=== PATIENT | male | born 1960 | race Two or more races ===

== ENCOUNTER 2018-02-03 14:56 | Inpatient (IN) | payer OTHER ==
[~2018-02-03] VITALS: Ht 170.2 cm; Wt 109.0 kg
[2018-02-03] MEDS ORDERED: SODIUM CHLORIDE 0.9% 1,000ML IVBOLUS ONE (16:00)
[2018-02-03] MEDS ORDERED: ACETAMINOPHEN 500 MG TABLET ONE (16:11)
[2018-02-03 16:16] LABS: BASOPHILS # (AUTO) 0.05 x10^3/uL (0-0.1); BASOPHILS % (AUTO) 0 % (0-1); EOSINOPHILS # (AUTO) 0.18 x10^3/uL (0-0.4); EOSINOPHILS % (AUTO) 1 % (1-7); LYMPHOCYTES # (AUTO) 1.39 x10^3/uL (1-3.4); LYMPHOCYTES % (AUTO) 9 % (22-44); MD NO; MEAN CORPUSCULAR HGB CONC 35.4 g/dL (33.2-36.2); MEAN CORPUSCULAR VOLUME 84.8 fL (81-97); MEAN PLATELET VOLUME 7.2 fL (7.4-10.4); MONOCYTES # (AUTO) 1.15 x10^3/uL (0.2-0.8); MONOCYTES % (AUTO) 7 % (2-9); NEUTROPHILS # (AUTO) 13.01 x10^3/uL (1.8-6.8); NEUTROPHILS % (AUTO) 82 % (42-75); PLATELET COUNT 366 x10^3/uL (130-400); RED BLOOD COUNT 5.22 x10^6/uL (4.38-5.82); RED CELL DISTRIBUTION WIDTH 13.6 % (9.4-14.8)
[2018-02-03 16:23] LABS: ALANINE AMINOTRANSFERASE 57 U/L (12-78); ALBUMIN 3.8 g/dL (3.4-5.0); ANION GAP 7 mmol/L (5-15); CALCIUM 8.4 mg/dL (8.5-10.1); CHLORIDE 103 mmol/L (98-107)
[2018-02-03] MEDS ORDERED: THYR300T PO (16:24)
[2018-02-03] MEDS ORDERED: FLUO90CA5 PO (16:24)
[2018-02-03] MEDS ORDERED: METO200T2 PO (16:24)
[2018-02-03] MEDS ORDERED: CARI350T14 PO (16:24)
[2018-02-03] MEDS ORDERED: METO50TA4 PO (16:26)
[2018-02-03] MEDS ORDERED: FLUO40CA2 PO (16:26)
[2018-02-03 16:33] LABS: ALKALINE PHOSPHATASE 89 U/L (45-117); BILIRUBIN,TOTAL 0.5 mg/dL (0.2-1.0); CREATININE 1.05 mg/dL (0.7-1.3); TOTAL PROTEIN 7.7 g/dL (6.4-8.2)
[2018-02-03 16:52] LABS: MICROSCOPIC AUTO
[2018-02-03 16:55] LABS: THYROID STIMULATING HORMONE < 0.005 mIU/L (0.358-3.740)
[2018-02-03 16:58] LABS: CULTURE INDICATED? NO
[2018-02-03] MEDS ORDERED: ACETAMINOPHEN 500 MG TABLET PO ONE (17:30)
[2018-02-03] MEDS ORDERED: OMNIPAQUE 350 MG/ML, 100ML BOTTLE ONE (17:51)
[2018-02-03] MEDS ORDERED: METRONIDAZOLE PMX 500MG/100ML 100 ML IV ONE (18:30)
[2018-02-03] MEDS ORDERED: CEFTRIAXONE PMX 1GM/50ML 50 ML IV ONE (18:30)
[2018-02-03] MEDS ORDERED: CEFTRIAXONE PMX 1GM/50ML 50 ML ONE (18:35)
[2018-02-03] MEDS ORDERED: METRONIDAZOLE PMX 500MG/100ML 100 ML ONE (18:35)
[2018-02-03] MEDS ORDERED: MORPHINE SULFATE 4 MG/ML, 1ML ONE (18:36)
[2018-02-03] MEDS ORDERED: MORPHINE SULFATE 4 MG/ML, 1ML IVPush PRN (19:00)
[2018-02-03] MEDS ORDERED: ONDANSETRON 2MG/ML, 2ML IVPush PRN (19:30)
[2018-02-03] MEDS: D5%-0.45% NACL 1,000 ML IV SCH (20:47)
[2018-02-03 21:17] VITALS: BP 162/92
[2018-02-03] MEDS: PIPERACILLIN/TAZO/PMX 3.375GM 50 ML IV SCH (21:23)
[2018-02-03] MEDS: FLUOXETINE HCL 20 MG CAPSULE PO SCH (21:23)
[2018-02-03] MEDS: morphine SULFATE 10 MG/ML, 1ML IVPush PRN (21:24)
[2018-02-03] MEDS: THYROID 30 MG TABLET PO SCH (21:24)
[2018-02-03] MEDS: ACETAMINOPHEN 325 MG TABLET PO PRN (23:16)
[2018-02-04] MEDS: morphine SULFATE 10 MG/ML, 1ML IVPush PRN ×7 (00:27→22:18)
[2018-02-04 01:51] VITALS: BP 132/79
[2018-02-04] MEDS: PIPERACILLIN/TAZO/PMX 3.375GM 50 ML IV SCH ×4 (03:24→21:19)
[2018-02-04] MEDS: ACETAMINOPHEN 325 MG TABLET PO PRN ×5 (03:28→22:18)
[2018-02-04 05:32] LABS: BASOPHILS # (AUTO) 0.01 x10^3/uL (0-0.1); BASOPHILS % (AUTO) 0 % (0-1); EOSINOPHILS # (AUTO) 0.01 x10^3/uL (0-0.4); EOSINOPHILS % (AUTO) 0 % (1-7); LYMPHOCYTES # (AUTO) 0.84 x10^3/uL (1-3.4); LYMPHOCYTES % (AUTO) 7 % (22-44); MD NO; MEAN CORPUSCULAR HEMOGLOBIN 30.1 pg (27.5-34.5); MEAN CORPUSCULAR HGB CONC 35.4 g/dL (33.2-36.2); MEAN CORPUSCULAR VOLUME 84.9 fL (81-97); MEAN PLATELET VOLUME 7.1 fL (7.4-10.4); MONOCYTES # (AUTO) 1.16 x10^3/uL (0.2-0.8); MONOCYTES % (AUTO) 10 % (2-9); NEUTROPHILS # (AUTO) 10.19 x10^3/uL (1.8-6.8); NEUTROPHILS % (AUTO) 83 % (42-75); PLATELET COUNT 300 x10^3/uL (130-400); RED BLOOD COUNT 4.73 x10^6/uL (4.38-5.82); RED CELL DISTRIBUTION WIDTH 13.9 % (9.4-14.8)
[2018-02-04 05:42] LABS: CHLORIDE 101 mmol/L (98-107)
[2018-02-04 05:56] LABS: ALANINE AMINOTRANSFERASE 45 U/L (12-78); ALBUMIN 3.4 g/dL (3.4-5.0); ALKALINE PHOSPHATASE 67 U/L (45-117); ANION GAP 9 mmol/L (5-15); BILIRUBIN,TOTAL 1.2 mg/dL (0.2-1.0); CALCIUM 8.4 mg/dL (8.5-10.1); CREATININE 1.16 mg/dL (0.7-1.3); TOTAL PROTEIN 6.9 g/dL (6.4-8.2)
[2018-02-04] MEDS: D5%-0.45% NACL 1,000 ML IV SCH ×2 (06:05→19:39)
[2018-02-04] MEDS ORDERED: MAGNESIUM SULFATE PMX 4GM/100M 100 ML IV ONE (07:00)
[2018-02-04 07:31] VITALS: BP 135/87
[2018-02-04] MEDS: ENOXAPARIN 40 MG/0.4 ML SQ SCH (07:57)
[2018-02-04 13:09] VITALS: BP 138/75
[2018-02-04 16:46] VITALS: BP 155/80
[2018-02-04 18:29] VITALS: BP 145/80
[2018-02-04] MEDS: THYROID 30 MG TABLET PO SCH (21:00)
[2018-02-04] MEDS: FLUOXETINE HCL 20 MG CAPSULE PO SCH (21:19)
[2018-02-05 00:13] VITALS: BP 136/69
[2018-02-05] MEDS: morphine SULFATE 10 MG/ML, 1ML IVPush PRN ×6 (01:35→19:32)
[2018-02-05] MEDS: PIPERACILLIN/TAZO/PMX 3.375GM 50 ML IV SCH ×4 (03:35→21:23)
[2018-02-05] MEDS: D5%-0.45% NACL 1,000 ML IV SCH ×3 (03:35→21:23)
[2018-02-05] MEDS: ACETAMINOPHEN 325 MG TABLET PO PRN (04:52)
[2018-02-05 05:09] LABS: BASOPHILS # (AUTO) 0.03 x10^3/uL (0-0.1); BASOPHILS % (AUTO) 0 % (0-1); EOSINOPHILS # (AUTO) 0.01 x10^3/uL (0-0.4); EOSINOPHILS % (AUTO) 0 % (1-7); LYMPHOCYTES # (AUTO) 0.96 x10^3/uL (1-3.4); LYMPHOCYTES % (AUTO) 16 % (22-44); MD NO; MEAN CORPUSCULAR HEMOGLOBIN 29.8 pg (27.5-34.5); MEAN CORPUSCULAR HGB CONC 34.9 g/dL (33.2-36.2); MEAN CORPUSCULAR VOLUME 85.5 fL (81-97); MONOCYTES # (AUTO) 0.81 x10^3/uL (0.2-0.8); MONOCYTES % (AUTO) 14 % (2-9); NEUTROPHILS # (AUTO) 4.13 x10^3/uL (1.8-6.8); NEUTROPHILS % (AUTO) 70 % (42-75); PLATELET COUNT 241 x10^3/uL (130-400); RED BLOOD COUNT 4.87 x10^6/uL (4.38-5.82); RED CELL DISTRIBUTION WIDTH 13.8 % (9.4-14.8)
[2018-02-05 05:16] LABS: CHLORIDE 100 mmol/L (98-107)
[2018-02-05 05:24] LABS: ALANINE AMINOTRANSFERASE 53 U/L (12-78); ALBUMIN 3.3 g/dL (3.4-5.0); ALKALINE PHOSPHATASE 67 U/L (45-117); ANION GAP 8 mmol/L (5-15); BILIRUBIN,TOTAL 2.2 mg/dL (0.2-1.0); CALCIUM 8.3 mg/dL (8.5-10.1); CREATININE 1.14 mg/dL (0.7-1.3); TOTAL PROTEIN 6.9 g/dL (6.4-8.2)
[2018-02-05 09:07] VITALS: BP 132/64
[2018-02-05] MEDS: ENOXAPARIN 40 MG/0.4 ML SQ SCH (09:09)
[2018-02-05 15:50] VITALS: BP 144/89
[2018-02-05 19:40] VITALS: BP 130/83
[2018-02-05] MEDS: THYROID 300 MG HOMEMEDPO SCH (21:23)
[2018-02-05] MEDS: FLUOXETINE HCL 20 MG CAPSULE PO SCH (21:23)
[2018-02-05] MEDS: HYDROcodone/APAP 5/325 TABLET PO PRN (22:45)
[2018-02-05] MEDS: ONDANSETRON ODT 4 MG PO PRN (22:45)
[2018-02-06 02:57] VITALS: BP 125/79
[2018-02-06] MEDS: PIPERACILLIN/TAZO/PMX 3.375GM 50 ML IV SCH ×2 (03:29→10:05)
[2018-02-06 06:10] LABS: CHLORIDE 102 mmol/L (98-107); MEAN CORPUSCULAR HEMOGLOBIN 29.4 pg (27.5-34.5); MEAN CORPUSCULAR HGB CONC 34.4 g/dL (33.2-36.2); MEAN CORPUSCULAR VOLUME 85.7 fL (81-97); MEAN PLATELET VOLUME 7.4 fL (7.4-10.4); PLATELET COUNT 233 x10^3/uL (130-400); RED BLOOD COUNT 4.62 x10^6/uL (4.38-5.82); RED CELL DISTRIBUTION WIDTH 13.6 % (9.4-14.8)
[2018-02-06 06:16] LABS: MD YES
[2018-02-06 06:17] LABS: ALANINE AMINOTRANSFERASE 73 U/L (12-78); ALBUMIN 3.2 g/dL (3.4-5.0); ALKALINE PHOSPHATASE 61 U/L (45-117); ANION GAP 8 mmol/L (5-15); BILIRUBIN,TOTAL 1.3 mg/dL (0.2-1.0); CALCIUM 8.5 mg/dL (8.5-10.1); CREATININE 0.95 mg/dL (0.7-1.3); TOTAL PROTEIN 6.9 g/dL (6.4-8.2)
[2018-02-06 06:32] LABS: EOS% (MANUAL) 2 % (1-7); LYMPH#(MANUAL) 1.63 x10^3/uL (1-3.4); LYMPHS% (MANUAL) 32 % (22-44); MONOS#(MANUAL) 0.92 x10^3/uL (0.3-2.7); MONOS% (MANUAL) 18 % (2-9); SEG#(MANUAL) 2.45 x10^3/uL (1.8-6.8); SEGS% (MANUAL) 48 % (42-75)
[2018-02-06 06:33] LABS: <PLATELET ESTIMATE> ADEQUATE; <PLT MORPHOLOGY> NORMAL PLT MORPH; <RBC MORPHOLOGY> NORMAL
[2018-02-06] MEDS: ENOXAPARIN 40 MG/0.4 ML SQ SCH (08:12)
[2018-02-06] MEDS: D5%-0.45% NACL 1,000 ML IV SCH (08:12)
[2018-02-06] MEDS: ONDANSETRON ODT 4 MG PO PRN ×2 (08:21→21:16)
[2018-02-06] MEDS: HYDROcodone/APAP 5/325 TABLET PO PRN ×2 (08:21→21:15)
[2018-02-06 08:39] VITALS: BP 148/80
[2018-02-06 10:09] LABS: CLOSTRIDIUM DIFFICILE ANTIGEN POSITIVE; CLOSTRIDIUM DIFFICILE TOXIN NEGATIVE (Negative)
[2018-02-06] MEDS: morphine SULFATE 10 MG/ML, 1ML IVPush PRN ×4 (10:52→22:52)
[2018-02-06] MEDS: CEFTRIAXONE PMX 2GM/50ML 50 ML IV SCH (11:27)
[2018-02-06 11:31] LABS: MEAN CORPUSCULAR HEMOGLOBIN 29.8 pg (27.5-34.5); MEAN CORPUSCULAR HGB CONC 35.1 g/dL (33.2-36.2); MEAN CORPUSCULAR VOLUME 84.9 fL (81-97); MEAN PLATELET VOLUME 7.2 fL (7.4-10.4); PLATELET COUNT 256 x10^3/uL (130-400); RED BLOOD COUNT 4.79 x10^6/uL (4.38-5.82); RED CELL DISTRIBUTION WIDTH 13.9 % (9.4-14.8)
[2018-02-06 11:43] LABS: ALANINE AMINOTRANSFERASE 96 U/L (12-78); ALBUMIN 3.4 g/dL (3.4-5.0); ANION GAP 8 mmol/L (5-15); CALCIUM 8.3 mg/dL (8.5-10.1); CHLORIDE 105 mmol/L (98-107)
[2018-02-06 11:45] LABS: ALKALINE PHOSPHATASE 69 U/L (45-117); BILIRUBIN,TOTAL 1.1 mg/dL (0.2-1.0); CREATININE 0.89 mg/dL (0.7-1.3); TOTAL PROTEIN 7.5 g/dL (6.4-8.2)
[2018-02-06 11:46] LABS: MD YES
[2018-02-06 11:48] LABS: BASOS#(MANUAL) 0.04 x10^3/uL (0-0.1); BASOS% (MANUAL) 1 % (0-1); EOS#(MANUAL) 0.17 x10^3/uL (0.0-0.4); EOS% (MANUAL) 4 % (1-7); LYMPH#(MANUAL) 1.42 x10^3/uL (1-3.4); LYMPHS% (MANUAL) 33 % (22-44); MONOS#(MANUAL) 0.56 x10^3/uL (0.3-2.7); MONOS% (MANUAL) 13 % (2-9); SEG#(MANUAL) 2.11 x10^3/uL (1.8-6.8); SEGS% (MANUAL) 49 % (42-75)
[2018-02-06 11:49] LABS: <PLATELET ESTIMATE> ADEQUATE; <PLT MORPHOLOGY> NORMAL PLT MORPH; <RBC MORPHOLOGY> NORMAL
[2018-02-06] MEDS: METRONIDAZOLE PMX 500MG/100ML 100 ML IV SCH ×2 (12:19→21:01)
[2018-02-06] MEDS: VANCOMYCIN 50 MG/ML ORAL SUSP PO SCH ×2 (13:00→20:00)
[2018-02-06 14:00] VITALS: BP 127/79
[2018-02-06 19:30] VITALS: BP 145/85
[2018-02-06] MEDS: THYROID 300 MG HOMEMEDPO SCH (21:00)
[2018-02-06] MEDS: FLUOXETINE HCL 20 MG CAPSULE PO SCH (21:01)
[2018-02-07] MEDS: D5%-0.45% NACL 1,000 ML IV SCH ×3 (00:18→17:00)
[2018-02-07 01:13] VITALS: BP 136/70
[2018-02-07] MEDS: ONDANSETRON ODT 4 MG PO PRN ×5 (01:23→20:16)
[2018-02-07] MEDS: HYDROcodone/APAP 5/325 TABLET PO PRN ×5 (01:23→20:16)
[2018-02-07] MEDS: VANCOMYCIN 50 MG/ML ORAL SUSP PO SCH ×4 (01:53→20:15)
[2018-02-07] MEDS: morphine SULFATE 10 MG/ML, 1ML IVPush PRN ×5 (02:44→21:29)
[2018-02-07] MEDS: METRONIDAZOLE PMX 500MG/100ML 100 ML IV SCH ×3 (05:11→20:26)
[2018-02-07 07:03] LABS: BASOPHILS # (AUTO) 0.05 x10^3/uL (0-0.1); BASOPHILS % (AUTO) 1 % (0-1); EOSINOPHILS # (AUTO) 0.21 x10^3/uL (0-0.4); EOSINOPHILS % (AUTO) 4 % (1-7); LYMPHOCYTES # (AUTO) 2.19 x10^3/uL (1-3.4); LYMPHOCYTES % (AUTO) 45 % (22-44); MD NO; MEAN CORPUSCULAR HEMOGLOBIN 29.4 pg (27.5-34.5); MEAN CORPUSCULAR HGB CONC 34.4 g/dL (33.2-36.2); MEAN CORPUSCULAR VOLUME 85.6 fL (81-97); MEAN PLATELET VOLUME 7.1 fL (7.4-10.4); MONOCYTES # (AUTO) 0.76 x10^3/uL (0.2-0.8); MONOCYTES % (AUTO) 16 % (2-9); NEUTROPHILS # (AUTO) 1.63 x10^3/uL (1.8-6.8); NEUTROPHILS % (AUTO) 34 % (42-75); PLATELET COUNT 269 x10^3/uL (130-400); RED BLOOD COUNT 4.49 x10^6/uL (4.38-5.82); RED CELL DISTRIBUTION WIDTH 13.6 % (9.4-14.8)
[2018-02-07 07:15] LABS: ALANINE AMINOTRANSFERASE 129 U/L (12-78); ALBUMIN 3.2 g/dL (3.4-5.0); ANION GAP 5 mmol/L (5-15); CALCIUM 8.1 mg/dL (8.5-10.1); CHLORIDE 105 mmol/L (98-107)
[2018-02-07 07:17] LABS: ALKALINE PHOSPHATASE 64 U/L (45-117); BILIRUBIN,TOTAL 0.8 mg/dL (0.2-1.0); CREATININE 0.91 mg/dL (0.7-1.3); TOTAL PROTEIN 6.7 g/dL (6.4-8.2)
[2018-02-07 07:38] VITALS: BP 144/80
[2018-02-07] MEDS: ENOXAPARIN 40 MG/0.4 ML SQ SCH (09:42)
[2018-02-07] MEDS: CEFTRIAXONE PMX 2GM/50ML 50 ML IV SCH (11:17)
[2018-02-07 12:42] VITALS: BP 164/79
[2018-02-07] MEDS: FLUOXETINE HCL 20 MG CAPSULE PO SCH (20:26)
[2018-02-07] MEDS: THYROID 300 MG HOMEMEDPO SCH (20:26)
[2018-02-07 20:49] VITALS: BP 175/84
[2018-02-07] MEDS: LABETALOL 5MG/ML, 20ML IVPush PRN (21:29)
[2018-02-07 23:00] VITALS: BP 144/80
[2018-02-08] MEDS: morphine SULFATE 10 MG/ML, 1ML IVPush PRN ×3 (00:50→08:30)
[2018-02-08] MEDS: D5%-0.45% NACL 1,000 ML IV SCH ×2 (00:50→12:13)
[2018-02-08] MEDS: ONDANSETRON ODT 4 MG PO PRN ×2 (00:50→04:50)
[2018-02-08] MEDS: VANCOMYCIN 50 MG/ML ORAL SUSP PO SCH ×4 (02:04→21:15)
[2018-02-08] MEDS: HYDROcodone/APAP 5/325 TABLET PO PRN (02:04)
[2018-02-08 04:08] VITALS: BP 128/77
[2018-02-08] MEDS: METRONIDAZOLE PMX 500MG/100ML 100 ML IV SCH ×3 (05:05→21:15)
[2018-02-08 05:32] LABS: BASOPHILS # (AUTO) 0.03 x10^3/uL (0-0.1); BASOPHILS % (AUTO) 1 % (0-1); EOSINOPHILS # (AUTO) 0.21 x10^3/uL (0-0.4); EOSINOPHILS % (AUTO) 5 % (1-7); LYMPHOCYTES # (AUTO) 1.92 x10^3/uL (1-3.4); LYMPHOCYTES % (AUTO) 41 % (22-44); MD NO; MEAN CORPUSCULAR HEMOGLOBIN 29.7 pg (27.5-34.5); MEAN CORPUSCULAR HGB CONC 35.1 g/dL (33.2-36.2); MEAN CORPUSCULAR VOLUME 84.6 fL (81-97); MEAN PLATELET VOLUME 7.6 fL (7.4-10.4); MONOCYTES # (AUTO) 0.64 x10^3/uL (0.2-0.8); MONOCYTES % (AUTO) 14 % (2-9); NEUTROPHILS # (AUTO) 1.91 x10^3/uL (1.8-6.8); NEUTROPHILS % (AUTO) 41 % (42-75); PLATELET COUNT 256 x10^3/uL (130-400); RED BLOOD COUNT 4.14 x10^6/uL (4.38-5.82); RED CELL DISTRIBUTION WIDTH 13.5 % (9.4-14.8)
[2018-02-08 05:41] LABS: ALBUMIN 3.1 g/dL (3.4-5.0); ANION GAP 6 mmol/L (5-15); CALCIUM 8.1 mg/dL (8.5-10.1); CHLORIDE 107 mmol/L (98-107)
[2018-02-08 05:45] LABS: ALANINE AMINOTRANSFERASE 138 U/L (12-78); ALKALINE PHOSPHATASE 63 U/L (45-117); BILIRUBIN,TOTAL 0.6 mg/dL (0.2-1.0); CREATININE 0.93 mg/dL (0.7-1.3); TOTAL PROTEIN 6.6 g/dL (6.4-8.2)
[2018-02-08 08:02] VITALS: BP 137/83
[2018-02-08] MEDS: ENOXAPARIN 40 MG/0.4 ML SQ SCH (08:29)
[2018-02-08 12:02] VITALS: BP 167/78
[2018-02-08] MEDS: CARISOPRODOL 350 MG TABLET PO SCH ×2 (12:05→21:15)
[2018-02-08] MEDS: OXYcodone/APAP 10/325MG TABLET PO PRN ×3 (12:05→21:15)
[2018-02-08] MEDS: CEFTRIAXONE PMX 2GM/50ML 50 ML IV SCH (12:13)
[2018-02-08 19:30] VITALS: BP 171/83
[2018-02-08] MEDS: THYROID 300 MG HOMEMEDPO SCH (21:00)
[2018-02-08] MEDS: FLUOXETINE HCL 20 MG CAPSULE PO SCH (21:15)
[2018-02-08] MEDS: LABETALOL 5MG/ML, 20ML IVPush PRN (21:16)
[2018-02-08 22:24] VITALS: BP 139/73
[2018-02-09] MEDS: OXYcodone/APAP 10/325MG TABLET PO PRN ×5 (03:05→23:06)
[2018-02-09] MEDS: D5%-0.45% NACL 1,000 ML IV SCH ×3 (03:06→23:06)
[2018-02-09] MEDS: VANCOMYCIN 50 MG/ML ORAL SUSP PO SCH ×4 (03:11→20:36)
[2018-02-09 03:25] VITALS: BP 173/82
[2018-02-09] MEDS: LABETALOL 5MG/ML, 20ML IVPush PRN (03:35)
[2018-02-09 03:39] VITALS: BP 163/96
[2018-02-09] MEDS: METRONIDAZOLE PMX 500MG/100ML 100 ML IV SCH ×3 (05:11→20:36)
[2018-02-09 05:51] LABS: BASOPHILS # (AUTO) 0.04 x10^3/uL (0-0.1); BASOPHILS % (AUTO) 1 % (0-1); EOSINOPHILS # (AUTO) 0.21 x10^3/uL (0-0.4); EOSINOPHILS % (AUTO) 4 % (1-7); LYMPHOCYTES # (AUTO) 2.22 x10^3/uL (1-3.4); LYMPHOCYTES % (AUTO) 42 % (22-44); MD NO; MEAN CORPUSCULAR HEMOGLOBIN 29.8 pg (27.5-34.5); MEAN CORPUSCULAR HGB CONC 34.8 g/dL (33.2-36.2); MEAN CORPUSCULAR VOLUME 85.5 fL (81-97); MEAN PLATELET VOLUME 7.7 fL (7.4-10.4); MONOCYTES % (AUTO) 11 % (2-9); NEUTROPHILS # (AUTO) 2.25 x10^3/uL (1.8-6.8); NEUTROPHILS % (AUTO) 42 % (42-75); PLATELET COUNT 288 x10^3/uL (130-400); RED BLOOD COUNT 4.31 x10^6/uL (4.38-5.82); RED CELL DISTRIBUTION WIDTH 13.6 % (9.4-14.8)
[2018-02-09 05:52] LABS: CHLORIDE 108 mmol/L (98-107)
[2018-02-09 06:03] LABS: ALANINE AMINOTRANSFERASE 141 U/L (12-78); ALBUMIN 3.2 g/dL (3.4-5.0); ALKALINE PHOSPHATASE 74 U/L (45-117); ANION GAP 6 mmol/L (5-15); BILIRUBIN,TOTAL 0.4 mg/dL (0.2-1.0); CALCIUM 8.3 mg/dL (8.5-10.1); CREATININE 0.95 mg/dL (0.7-1.3); TOTAL PROTEIN 6.7 g/dL (6.4-8.2)
[2018-02-09 07:14] VITALS: BP 147/83
[2018-02-09] MEDS: ENOXAPARIN 40 MG/0.4 ML SQ SCH (08:08)
[2018-02-09] MEDS: CARISOPRODOL 350 MG TABLET PO SCH ×2 (08:08→20:36)
[2018-02-09] MEDS: CEFTRIAXONE PMX 2GM/50ML 50 ML IV SCH (11:05)
[2018-02-09 15:43] VITALS: BP 162/90
[2018-02-09 20:00] VITALS: BP 155/77
[2018-02-09] MEDS: THYROID 300 MG HOMEMEDPO SCH (20:36)
[2018-02-09] MEDS: FLUOXETINE HCL 20 MG CAPSULE PO SCH (20:36)
[2018-02-10 01:26] VITALS: BP 160/91
[2018-02-10] MEDS: VANCOMYCIN 50 MG/ML ORAL SUSP PO SCH ×2 (02:23→07:40)
[2018-02-10 02:27] VITALS: BP 171/84
[2018-02-10] MEDS: LABETALOL 5MG/ML, 20ML IVPush PRN (02:36)
[2018-02-10] MEDS: OXYcodone/APAP 10/325MG TABLET PO PRN ×3 (03:32→12:30)
[2018-02-10 03:33] VITALS: BP 165/83
[2018-02-10] MEDS: METRONIDAZOLE PMX 500MG/100ML 100 ML IV SCH (05:27)
[2018-02-10 05:29] LABS: BASOPHILS # (AUTO) 0.04 x10^3/uL (0-0.1); BASOPHILS % (AUTO) 1 % (0-1); EOSINOPHILS # (AUTO) 0.28 x10^3/uL (0-0.4); EOSINOPHILS % (AUTO) 4 % (1-7); LYMPHOCYTES # (AUTO) 2.68 x10^3/uL (1-3.4); LYMPHOCYTES % (AUTO) 39 % (22-44); MD NO; MEAN CORPUSCULAR HEMOGLOBIN 29.2 pg (27.5-34.5); MEAN CORPUSCULAR HGB CONC 34.3 g/dL (33.2-36.2); MEAN CORPUSCULAR VOLUME 85.3 fL (81-97); MEAN PLATELET VOLUME 7.5 fL (7.4-10.4); MONOCYTES % (AUTO) 9 % (2-9); NEUTROPHILS # (AUTO) 3.22 x10^3/uL (1.8-6.8); NEUTROPHILS % (AUTO) 47 % (42-75); PLATELET COUNT 313 x10^3/uL (130-400); RED BLOOD COUNT 4.23 x10^6/uL (4.38-5.82); RED CELL DISTRIBUTION WIDTH 13.3 % (9.4-14.8)
[2018-02-10 05:31] LABS: CHLORIDE 107 mmol/L (98-107)
[2018-02-10 05:40] LABS: ALANINE AMINOTRANSFERASE 119 U/L (12-78); ALBUMIN 3.1 g/dL (3.4-5.0); ALKALINE PHOSPHATASE 78 U/L (45-117); ANION GAP 7 mmol/L (5-15); BILIRUBIN,TOTAL 0.4 mg/dL (0.2-1.0); CALCIUM 8.2 mg/dL (8.5-10.1); CREATININE 0.89 mg/dL (0.7-1.3); TOTAL PROTEIN 6.4 g/dL (6.4-8.2)
[2018-02-10] MEDS ORDERED: CEFTRIAXONE PMX 2GM/50ML 50 ML IV SCH (06:30)
[2018-02-10] MEDS ORDERED: MAGNESIUM SULFATE PMX 4GM/100M 100 ML IV ONE (07:00)
[2018-02-10 07:30] VITALS: BP 156/84
[2018-02-10] MEDS: metroNIDAZOLE 500 MG TABLET PO SCH ×2 (07:40→09:00)
[2018-02-10] MEDS: CARISOPRODOL 350 MG TABLET PO SCH (07:41)
[2018-02-10] MEDS: ENOXAPARIN 40 MG/0.4 ML SQ SCH (07:41)
[2018-02-10] MEDS ORDERED: CIPR500T87 PO (10:31)
[2018-02-10] MEDS ORDERED: VANC1VIA3 PO (10:31)
[2018-02-10] MEDS ORDERED: METR500T PO (10:31)
== END 2018-02-10 13:21 | disposition home or self-care (01) | DRG 872 ==
LOC: ED 18:22 → EDIP 18:35 → 3NE 19:30
PROVIDERS: ADMIT Internal Medicine; ATTEND Internal Medicine
DX: A41.9 Sepsis, unspecified organism (principal); K57.32 Diverticulitis of large intestine without perforation or abscess without bleeding; A04.72 Enterocolitis due to Clostridium difficile, not specified as recurrent; C73 Malignant neoplasm of thyroid gland; E03.2 Hypothyroidism due to medicaments and other exogenous substances; E66.01 Morbid (severe) obesity due to excess calories; E78.5 Hyperlipidemia, unspecified; G47.30 Sleep apnea, unspecified; I10 Essential (primary) hypertension; M54.30 Sciatica, unspecified side; R65.20 Severe sepsis without septic shock; Z80.0 Family history of malignant neoplasm of digestive organs; Z82.49 Family history of ischemic heart disease and other diseases of the circulatory system; Z86.010 Personal history of colon polyps; Z87.891 Personal history of nicotine dependence; Z68.37 Body mass index [BMI] 37.0-37.9, adult
CPT/HCPCS: 36415; 71046; 74018; 74177; 76700; 80053; 81001; 83605; 83735; 84100; 84439; 84443; 85025; 87040; 87077; 87186; 87324; 87493; 96361; 96374; 96375; J0696; J1650; J2543; J3370; Q0162; Q9967; J2270; J3475; J7030

== ENCOUNTER → 2018-05-29 | Outpatient (CLI) | payer OTHER ==
[~2018-05-29] MED LIST: CARI350T14 PO; CIPR500T87 PO; FLUO40CA2 PO; FLUO90CA5 PO; LEVO175T2 PO; LIOT25TA3 PO; METO200T2 PO; METO50TA4 PO; METR500T PO; OXYC-432 PO; THYR300T PO; VANC1VIA3 PO
[2018-05-29 15:38] LABS: BASOPHILS # (AUTO) 0.03 x10^3/uL (0-0.1); BASOPHILS % (AUTO) 0 % (0-1); EOSINOPHILS # (AUTO) 0.29 x10^3/uL (0-0.4); EOSINOPHILS % (AUTO) 3 % (1-7); LYMPHOCYTES # (AUTO) 3.11 x10^3/uL (1-3.4); LYMPHOCYTES % (AUTO) 31 % (22-44); MD NO; MEAN CORPUSCULAR HEMOGLOBIN 29.2 pg (27.5-34.5); MEAN CORPUSCULAR HGB CONC 34.5 g/dL (33.2-36.2); MEAN CORPUSCULAR VOLUME 84.6 fL (81-97); MEAN PLATELET VOLUME 7.7 fL (7.4-10.4); MONOCYTES # (AUTO) 0.98 x10^3/uL (0.2-0.8); MONOCYTES % (AUTO) 10 % (2-9); NEUTROPHILS # (AUTO) 5.76 x10^3/uL (1.8-6.8); NEUTROPHILS % (AUTO) 57 % (42-75); PLATELET COUNT 381 x10^3/uL (130-400); RED BLOOD COUNT 5.33 x10^6/uL (4.38-5.82); RED CELL DISTRIBUTION WIDTH 13.1 % (9.4-14.8)
[2018-05-29 15:51] LABS: ALANINE AMINOTRANSFERASE 34 U/L (12-78); ALBUMIN 3.9 g/dL (3.4-5.0); ANION GAP 8 mmol/L (5-15); CALCIUM 9.3 mg/dL (8.5-10.1); CHLORIDE 107 mmol/L (98-107)
[2018-05-29 15:53] LABS: ALKALINE PHOSPHATASE 104 U/L (45-117); BILIRUBIN,TOTAL 0.4 mg/dL (0.2-1.0); CREATININE 0.83 mg/dL (0.7-1.3); TOTAL PROTEIN 8.2 g/dL (6.4-8.2)
== END | disposition home or self-care (01) ==
LOC: STAR 14:31
PROVIDERS: ATTEND Surgery
DX: Z01.818 Encounter for other preprocedural examination (principal); F17.200 Nicotine dependence, unspecified, uncomplicated
CPT/HCPCS: 36415; 80053; 85025; 93005

== ENCOUNTER 2018-06-05 06:05 | Inpatient (IN) | payer OTHER ==
[~2018-06-05] VITALS: Ht 170.2 cm; Wt 97.9 kg
[2018-06-05] MEDS ORDERED: LACTATED RINGERS 1,000 ML IV SCH (07:01)
[2018-06-05] MEDS ORDERED: BUPIVACAINE/PF 0.5% ONE (07:01)
[2018-06-05] MEDS ORDERED: MIDAZOLAM 1 MG/ML, 2ML ONE (07:04)
[2018-06-05] MEDS ORDERED: ROCURONIUM 10MG/ML,5ML ONE ×2 (07:05→08:57)
[2018-06-05] MEDS ORDERED: FENTANYL PF 250 MCG/5ML ONE ×2 (07:05→09:15)
[2018-06-05] MEDS ORDERED: PROPOFOL 10 MG/ML, 20ML ONE (07:05)
[2018-06-05] MEDS ORDERED: NEOSTIGMINE 1 MG/ML, 10ML ONE (07:06)
[2018-06-05] MEDS ORDERED: GLYCOPYRROLATE 0.4 MG/2 ML, 2ML ONE (07:06)
[2018-06-05] MEDS ORDERED: ROPIvacaine/PF 0.5%, 30 ML ONE ×2 (07:08)
[2018-06-05] MEDS ORDERED: GABAPENTIN 300 MG CAPSULE PO ONE (07:30)
[2018-06-05] MEDS ORDERED: ACETAMINOPHEN 500 MG TABLET PO ONE (07:30)
[2018-06-05] MEDS ORDERED: ACETAMINOPHEN 500 MG TABLET ONE (07:34)
[2018-06-05] MEDS ORDERED: GABAPENTIN 300 MG CAPSULE ONE (07:35)
[2018-06-05] MEDS ORDERED: CEFOTETAN PMX 2GM/50ML 50 ML ONE (07:41)
[2018-06-05] MEDS ORDERED: INDOCYANINE GREEN 25 MG VIAL ONE (07:47)
[2018-06-05] MEDS ORDERED: LABETALOL 5MG/ML, 20ML IV PRN (08:00)
[2018-06-05] MEDS ORDERED: ACETAMINOPHEN 325 MG TABLET PO PRN (08:00)
[2018-06-05] MEDS ORDERED: ONDANSETRON ODT 8 MG PO PRN (08:00)
[2018-06-05] MEDS ORDERED: MORPHINE SULFATE 4 MG/ML, 1ML IVPush PRN (08:00)
[2018-06-05] MEDS ORDERED: PROMETHAZINE 25 MG/ML, 1ML IM PRN ×2 (08:00)
[2018-06-05] MEDS ORDERED: hydrALAzine 20 MG/ML, 1ML IV PRN (08:00)
[2018-06-05] MEDS ORDERED: ONDANSETRON 2MG/ML, 2ML IV PRN ×2 (08:00→12:30)
[2018-06-05] MEDS ORDERED: PROMETHAZINE 25 MG/ML, 1ML IV PRN (08:00)
[2018-06-05] MEDS ORDERED: OXYcodone 5 MG/5 ML ORAL.SOL UDC PO PRN (08:00)
[2018-06-05] MEDS ORDERED: OXYcodone 5 MG/5 ML ORAL.SOL UDC ONE (10:19)
[2018-06-05] MEDS ORDERED: FENTANYL PF 100 MCG/2ML ONE (10:19)
[2018-06-05] MEDS ORDERED: HYDROmorphone 2 MG/ML, 1ML ONE ×4 (10:19→21:30)
[2018-06-05] MEDS: FENTANYL PF 100 MCG/2ML IV PRN ×2 (10:20→10:25)
[2018-06-05] MEDS: HYDROmorphone 1 MG/ML, 1ML IV PRN ×3 (10:30→10:50)
[2018-06-05] MEDS ORDERED: MEPERIDINE/PF 50 MG/ML ONE (10:51)
[2018-06-05] MEDS: MEPERIDINE/PF 25MG/0.5ML IVPush PRN ×2 (10:55→11:10)
[2018-06-05] MEDS ORDERED: DIPHENHYDRAMINE 50 MG/ML, 1ML IVPush PRN (12:30)
[2018-06-05] MEDS ORDERED: SCOPOLAMINE PATCH, 1.5MG PATCH.TD72 TD PRN (12:30)
[2018-06-05] MEDS ORDERED: LORazepam 2 MG/ML, 1ML IVPush PRN (12:30)
[2018-06-05] MEDS ORDERED: DIPHENHYDRAMINE 25 MG CAPSULE PO PRN (12:30)
[2018-06-05] MEDS ORDERED: DEXAMETHASONE 4 MG/ML, 1ML IVPush PRN (12:30)
[2018-06-05] MEDS ORDERED: LORazepam 1MG TABLET PO PRN (12:30)
[2018-06-05] MEDS ORDERED: CALCIUM CARBONATE 500 MG TAB.CHEW PO PRN (12:30)
[2018-06-05 13:03] VITALS: BP 130/76
[2018-06-05] MEDS: OXYcodone IR 5MG TABLET PO PRN ×4 (13:30→23:00)
[2018-06-05] MEDS: ACETAMINOPHEN 500 MG TABLET PO SCH ×2 (13:31→19:48)
[2018-06-05] MEDS: D5%-0.45NACL+KCL 20MEQ 1,000 ML IV SCH (13:41)
[2018-06-05] MEDS: HYDROmorphone 1 MG/ML, 1ML IVPush PRN ×3 (14:34→21:34)
[2018-06-05] MEDS: CARISOPRODOL 350 MG TABLET PO SCH (19:48)
[2018-06-05] MEDS: LIOTHYRONINE 25 MCG TABLET PO SCH (19:48)
[2018-06-05] MEDS: FLUOXETINE HCL 20 MG CAPSULE PO SCH (19:48)
[2018-06-05] MEDS: METOPROLOL SUCCINATE 50 MG TAB.ER.24H PO SCH (19:48)
[2018-06-05] MEDS: LEVOTHYROXINE 175 MCG TABLET PO SCH (19:48)
[2018-06-05 21:00] VITALS: BP 151/83
[2018-06-06 00:21] VITALS: BP 155/78
[2018-06-06] MEDS ORDERED: HYDROmorphone 2 MG/ML, 1ML ONE ×3 (00:28→06:16)
[2018-06-06] MEDS: HYDROmorphone 1 MG/ML, 1ML IVPush PRN ×3 (00:31→06:20)
[2018-06-06] MEDS: D5%-0.45NACL+KCL 20MEQ 1,000 ML IV SCH ×2 (01:44→16:57)
[2018-06-06] MEDS: OXYcodone IR 5MG TABLET PO PRN ×6 (01:44→22:35)
[2018-06-06] MEDS: ACETAMINOPHEN 500 MG TABLET PO SCH ×4 (01:44→20:47)
[2018-06-06 05:18] VITALS: BP 146/89
[2018-06-06 06:07] LABS: MEAN CORPUSCULAR HEMOGLOBIN 29.5 pg (27.5-34.5); MEAN CORPUSCULAR HGB CONC 34.9 g/dL (33.2-36.2); MEAN CORPUSCULAR VOLUME 84.7 fL (81-97); MEAN PLATELET VOLUME 7.7 fL (7.4-10.4); PLATELET COUNT 332 x10^3/uL (130-400); RED CELL DISTRIBUTION WIDTH 13.1 % (9.4-14.8)
[2018-06-06 06:13] LABS: ANION GAP 8 mmol/L (5-15); CALCIUM 9.2 mg/dL (8.5-10.1); CHLORIDE 102 mmol/L (98-107); CREATININE 0.91 mg/dL (0.7-1.3)
[2018-06-06 06:44] LABS: BASOPHILS # (AUTO) 0.02 x10^3/uL (0-0.1); BASOPHILS % (AUTO) 0 % (0-1); EOSINOPHILS # (AUTO) 0.35 x10^3/uL (0-0.4); EOSINOPHILS % (AUTO) 3 % (1-7); LYMPHOCYTES % (AUTO) 22 % (22-44); MD SCAN; MONOCYTES # (AUTO) 1.51 x10^3/uL (0.2-0.8); MONOCYTES % (AUTO) 15 % (2-9); NEUTROPHILS % (AUTO) 59 % (42-75)
[2018-06-06 07:50] VITALS: BP 154/89
[2018-06-06] MEDS ORDERED: ENOXAPARIN 40 MG/0.4 ML SQ SCH (08:00)
[2018-06-06] MEDS: CARISOPRODOL 350 MG TABLET PO SCH ×2 (08:54→20:46)
[2018-06-06 13:24] VITALS: BP 119/81
[2018-06-06] MEDS ORDERED: OXYcodone IR 5MG TABLET PO ONE (14:30)
[2018-06-06] MEDS: LIOTHYRONINE 25 MCG TABLET PO SCH (20:46)
[2018-06-06] MEDS: FLUOXETINE HCL 20 MG CAPSULE PO SCH (20:47)
[2018-06-06] MEDS: METOPROLOL SUCCINATE 50 MG TAB.ER.24H PO SCH (20:47)
[2018-06-06] MEDS: LEVOTHYROXINE 175 MCG TABLET PO SCH (20:47)
[2018-06-06 21:35] VITALS: BP 156/95
[2018-06-07 01:21] VITALS: BP 143/90
[2018-06-07] MEDS: ACETAMINOPHEN 500 MG TABLET PO SCH ×4 (02:46→21:32)
[2018-06-07] MEDS: OXYcodone IR 5MG TABLET PO PRN ×5 (02:46→21:31)
[2018-06-07] MEDS: D5%-0.45NACL+KCL 20MEQ 1,000 ML IV SCH ×2 (04:22→21:42)
[2018-06-07 04:34] LABS: BASOPHILS % (AUTO) 0 % (0-1); EOSINOPHILS # (AUTO) 0.44 x10^3/uL (0-0.4); EOSINOPHILS % (AUTO) 4 % (1-7); LYMPHOCYTES # (AUTO) 2.37 x10^3/uL (1-3.4); LYMPHOCYTES % (AUTO) 19 % (22-44); MD NO; MEAN CORPUSCULAR HEMOGLOBIN 29.4 pg (27.5-34.5); MEAN CORPUSCULAR HGB CONC 34.7 g/dL (33.2-36.2); MEAN CORPUSCULAR VOLUME 84.7 fL (81-97); MEAN PLATELET VOLUME 7.7 fL (7.4-10.4); MONOCYTES # (AUTO) 1.31 x10^3/uL (0.2-0.8); MONOCYTES % (AUTO) 11 % (2-9); NEUTROPHILS # (AUTO) 8.26 x10^3/uL (1.8-6.8); NEUTROPHILS % (AUTO) 67 % (42-75); PLATELET COUNT 330 x10^3/uL (130-400); RED BLOOD COUNT 5.13 x10^6/uL (4.38-5.82); RED CELL DISTRIBUTION WIDTH 13.5 % (9.4-14.8)
[2018-06-07 04:44] LABS: ANION GAP 9 mmol/L (5-15); CALCIUM 9.3 mg/dL (8.5-10.1); CHLORIDE 102 mmol/L (98-107); CREATININE 0.82 mg/dL (0.7-1.3)
[2018-06-07 07:15] VITALS: BP 138/94
[2018-06-07] MEDS: CARISOPRODOL 350 MG TABLET PO SCH ×2 (09:00→21:31)
[2018-06-07 13:09] VITALS: BP 152/84
[2018-06-07 19:45] VITALS: BP 137/87
[2018-06-07] MEDS ORDERED: METOPROLOL SUCCINATE 25 MG TAB.ER.24H ONE (21:19)
[2018-06-07] MEDS: LIOTHYRONINE 25 MCG TABLET PO SCH (21:31)
[2018-06-07] MEDS: METOPROLOL SUCCINATE 50 MG TAB.ER.24H PO SCH (21:32)
[2018-06-07] MEDS: FLUOXETINE HCL 20 MG CAPSULE PO SCH (21:32)
[2018-06-08 00:47] VITALS: BP 133/83
[2018-06-08] MEDS: ACETAMINOPHEN 500 MG TABLET PO SCH ×2 (03:29→08:52)
[2018-06-08] MEDS: OXYcodone IR 5MG TABLET PO PRN ×2 (03:29→07:49)
[2018-06-08 05:36] LABS: CHLORIDE 101 mmol/L (98-107)
[2018-06-08 05:42] LABS: MEAN CORPUSCULAR HEMOGLOBIN 29.3 pg (27.5-34.5); MEAN CORPUSCULAR HGB CONC 34.7 g/dL (33.2-36.2); MEAN CORPUSCULAR VOLUME 84.3 fL (81-97); MEAN PLATELET VOLUME 7.9 fL (7.4-10.4); PLATELET COUNT 339 x10^3/uL (130-400); RED BLOOD COUNT 5.12 x10^6/uL (4.38-5.82); RED CELL DISTRIBUTION WIDTH 13.6 % (9.4-14.8)
[2018-06-08 05:44] LABS: ANION GAP 9 mmol/L (5-15); CALCIUM 8.7 mg/dL (8.5-10.1); CREATININE 0.98 mg/dL (0.7-1.3)
[2018-06-08 07:42] LABS: BASOPHILS # (AUTO) 0.03 x10^3/uL (0-0.1); BASOPHILS % (AUTO) 0 % (0-1); EOSINOPHILS # (AUTO) 0.78 x10^3/uL (0-0.4); EOSINOPHILS % (AUTO) 7 % (1-7); LYMPHOCYTES # (AUTO) 3.24 x10^3/uL (1-3.4); LYMPHOCYTES % (AUTO) 27 % (22-44); MD SCAN; MONOCYTES % (AUTO) 12 % (2-9); NEUTROPHILS # (AUTO) 6.57 x10^3/uL (1.8-6.8); NEUTROPHILS % (AUTO) 54 % (42-75)
[2018-06-08] MEDS: LEVOTHYROXINE 175 MCG TABLET PO SCH (07:49)
[2018-06-08 08:31] VITALS: BP 145/86
[2018-06-08] MEDS: CARISOPRODOL 350 MG TABLET PO SCH (08:52)
== END 2018-06-08 11:22 | disposition home or self-care (01) | DRG 392 ==
LOC: ORIP 06:05 → 4NOR 11:45
PROVIDERS: ADMIT Surgery; ATTEND Surgery
PROC: 0DBP4ZX Excision of Rectum, Percutaneous Endoscopic Approach, Diagnostic (ICD-10-PCS; 2018-06-05)
PROC: 0DBN4ZX Excision of Sigmoid Colon, Percutaneous Endoscopic Approach, Diagnostic (ICD-10-PCS; 2018-06-05)
PROC: 3E0T3BZ Introduction of Anesthetic Agent into Peripheral Nerves and Plexi, Percutaneous Approach (ICD-10-PCS; 2018-06-05)
PROC: 8E0W4CZ Robotic Assisted Procedure of Trunk Region, Percutaneous Endoscopic Approach (ICD-10-PCS; principal; 2018-06-05 08:00)
DX: K57.32 Diverticulitis of large intestine without perforation or abscess without bleeding (principal); M54.5 Low back pain; G89.4 Chronic pain syndrome; F32.9 Major depressive disorder, single episode, unspecified; K58.9 Irritable bowel syndrome, unspecified; G62.9 Polyneuropathy, unspecified; G47.30 Sleep apnea, unspecified; E78.00 Pure hypercholesterolemia, unspecified; E78.5 Hyperlipidemia, unspecified; I10 Essential (primary) hypertension; E03.9 Hypothyroidism, unspecified; Z90.89 Acquired absence of other organs; Z79.891 Long term (current) use of opiate analgesic; Z80.0 Family history of malignant neoplasm of digestive organs; Z80.8 Family history of malignant neoplasm of other organs or systems; Z82.49 Family history of ischemic heart disease and other diseases of the circulatory system; Z72.0 Tobacco use
CPT/HCPCS: 36415; 80048; 85025; 86850; 86900; 88307; G0378; J1170; J1650; J2175; J2250; J2704; J2710; J2795; J3010; J3490; J3480; J7120; S0074